=== PATIENT | male | born 1940 | race Caucasian/White ===

== ENCOUNTER 2017-02-05 11:55 | Outpatient (CLI) | payer MEDICARE ==
[2017-02-05 12:30] LABS: Cardiac Risk 4.5 (Less than 4.5)
== END 2017-02-05 11:56 | disposition home or self-care (01) ==
LOC: MADLAB 11:55
PROVIDERS: ATTEND Emergency Medicine
DX: I25.10 Atherosclerotic heart disease of native coronary artery without angina pectoris (principal); I10 Essential (primary) hypertension; Z95.1 Presence of aortocoronary bypass graft
CPT/HCPCS: 36415; 80061

== ENCOUNTER 2017-09-03 10:24 | Outpatient (CLI) | payer MEDICARE ==
[2017-09-03 11:34] LABS: Cardiac Risk 4.2 (Less than 4.5)
== END 2017-09-03 10:25 | disposition home or self-care (01) ==
LOC: MADLAB 10:24
PROVIDERS: ATTEND Internal Medicine Cardiovascular Disease
DX: I25.10 Atherosclerotic heart disease of native coronary artery without angina pectoris (principal)
CPT/HCPCS: 36415; 80061

== ENCOUNTER 2022-06-01 11:30 | Emergency (ER) | payer OTHER ==
[~2022-06-01 11:30] MED LIST: Iopamidol 370 76% 100 ML VIAL ONE
[2022-06-01] MEDS ORDERED: Ondansetron PF 4 MG/2 ML Vial ONE (12:09)
[2022-06-01] MEDS ORDERED: Sodium Chloride 0.9% 1,000 ML ONE ×2 (12:09→14:08)
[2022-06-01 12:10] LABS: #Basophils 0.1 thou/uL (0.0-0.2); #Lymphocytes 0.9 thou/uL (1.20-3.40); #Monocytes 0.8 thou/uL (0.11-0.59); #Neutrophils 5.1 thou/uL (1.40-6.50); %Basophils 1.2 % (0.0-1.0); %Eosinophils 0.4 % (0.0-10.0); %Lymphocytes 13.7 % (21.0-51.0); %Neutrophils 73.8 % (42.0-75.0); Mean Corpuscular HGB CONC 34.1 g/dL (32.0-36.0); Mean Corpuscular Hemoglobin 29.6 pg (27.0-31.0); Mean Corpuscular Volume 86.8 fl (78.0-98.0); Mean Platelet Volume 7.1 fL (7.4-10.4); Platelet Count 173 10x3/uL (130-400); RBC Distribution Width 11.9 % (11.5-14.5); Red Blood Cell (RBC) Count 4.39 mill/uL (4.70-6.10); White Blood Cell (WBC) Count 6.9 10x3/uL (4.8-10.8)
[2022-06-01 12:30] LABS: ALT (SGPT) 22 U/L (8-55); AST (SGOT) 23 U/L (5-34); Albumin 3.7 g/dL (3.4-4.8); Alkaline Phosphatase 76 U/L (40-110); Anion Gap 16 mmol/L (10-20); BUN (Urea Nitrogen) 15 mg/dL (8.4-25.7); Bilirubin, Total 0.7 mg/dL (0.2-1.2); Calc. Creatinine Clearance 0 mL/min (70-130); Calcium 8.7 mg/dL (7.8-10.44); Carbon Dioxide 20 mmol/L (23-31); Chloride 102 mmol/L (98-107); Estimated GFR 60; Globulin 2.6 g/dL (2.4-3.5); Glucose 170 mg/dL (83-110); Potassium 3.8 mmol/L (3.5-5.1); Protein, Total 6.3 g/dL (5.8-8.1); Sodium 134 mmol/L (136-145)
[2022-06-01 12:50] LABS: CKMB 1.1 ng/mL (0-6.6)
[2022-06-01 14:34] LABS: SARS-CoV-2 NAA Rapid Test Not Detected (NotDetected)
[2022-06-01 15:01] LABS: Bilirubin Negative (Negative); Blood, Urine Trace (Negative); Clarity Clear (Clear); Glucose, Urine (Dipstick) Negative (Negative); Ketone, Urine Negative (Negative); Leukocyte Negative (Negative); Nitrite Negative (Negative); Protein, Urine (Dipstick) Negative (Neg-Trace); Specific Gravity, Urine 1.015 (1.005-1.030); Urobilinogen 0.2 mg/dL (Less than 2)
[2022-06-01 15:02] LABS: RBC/HPF 0-3 HPF (0-3); Squamous Epithelial 0-3 HPF (0-3); WBC/HPF 0-3 HPF (0-3)
[2022-06-01 15:03] LABS: Bacteria/HPF Rare-Few HPF (None Seen)
[2022-06-01] MEDS ORDERED: Oseltamivir 75 MG CAP ONE (17:07)
== END 2022-06-01 19:44 | disposition short-term general hospital (02) ==
LOC: MADERS 11:30
DX: I48.91 Unspecified atrial fibrillation (principal); J06.9 Acute upper respiratory infection, unspecified; R77.8 Other specified abnormalities of plasma proteins; R19.7 Diarrhea, unspecified; I25.10 Atherosclerotic heart disease of native coronary artery without angina pectoris; I10 Essential (primary) hypertension; E78.5 Hyperlipidemia, unspecified; Z79.82 Long term (current) use of aspirin; Z79.899 Other long term (current) drug therapy; Z20.822 Contact with and (suspected) exposure to COVID-19
CPT/HCPCS: 71045; 74177; 80053; 81003; 81015; 82553; 83605; 83880; 84484; 85025; 93005; 96361; 96374; J2405; J7050; Q9967